=== PATIENT | male | born 1980 | race Caucasian/White ===

== ENCOUNTER 2018-05-10 07:48 | Outpatient (CLI) | payer BC ==
--- NOTE | 2018-05-10 09:39 | RAD ---
PA AND LATERAL CHEST: HISTORY: Cough and wheezing. FINDINGS: Heart size and mediastinum are within normal limits. The lungs are clear of any infiltrative process . IMPRESSION: No active intrathoracic disease. POS: [facility]
== END 2018-05-10 07:49 | disposition home or self-care (01) ==
LOC: BICRAD 07:48
PROVIDERS: ATTEND Family Medicine
DX: R06.2 Wheezing (principal)
CPT/HCPCS: 36415; 71046; 80053; 85025; 86140; 86618